=== PATIENT | female | born 1975 | race Caucasian/White ===

== ENCOUNTER → 2017-01-08 | Outpatient (CLI) | payer OTHER ==
--- NOTE | 2017-01-08 14:48 | XR ---
EXAMINATION TYPE: XR forearm RT DATE OF EXAM: 01/08/2017 COMPARISON: NONE HISTORY: Pain Two views of the forearm demonstrate that the osseous structures appear to be intact and the joint sp aces appear to be preserved. There is no acute fracture or dislocation. IMPRESSION: 1. No acute fracture or dislocation
--- NOTE | 2017-01-08 14:49 | XR ---
EXAMINATION TYPE: XR hand complete RT DATE OF EXAM: 01/08/2017 COMPARISON: NONE HISTORY: Pain TECHNIQUE: Three views are submitted. FINDINGS: The osseous structures are intact. The joint spaces are preserved and there is no acute fracture or dislocation. IMPRESSION: 1. No definite acute fracture or dislocation if symptoms persist, follow-up study in 7 to 10 days wo uld be suggested
--- NOTE | 2017-01-08 15:18 | US ---
EXAMINATION TYPE: US venous doppler duplex UE RT DATE OF EXAM: 01/08/2017 COMPARISON: NONE CLINICAL HISTORY: M65.831 TENOSYNOVITIS OF RT FOREARM. Work injury, swelling and pain right arm. NO h istory of DVT SIDE PERFORMED: right Right Arm: No evidence of DVT Grayscale, color doppler, spectral doppler imaging performed of the deep veins of the right upper ext remity. There is normal flow, compressibility and vascular waveforms. IMPRESSION: No ultrasound evidence for acute deep or superficial vein thrombus in the right upper ext remity.
== END | disposition home or self-care (01) ==
LOC: RADUSWWP 13:48
PROVIDERS: ATTEND Emergency Medicine
DX: M65.831 Other synovitis and tenosynovitis, right forearm (principal)